=== PATIENT | male | born 1965 | race Caucasian/White ===

== ENCOUNTER 2016-07-26 23:18 | Emergency (ER) | payer OTHER ==
[~2016-07-26] VITALS: Ht 167.6 cm; Wt 67.0 kg
[~2016-07-26 23:18] MED LIST: ALBU6.7H INH; DOXY100T PO; Z.0.NO CURRENT MEDS
[2016-07-26 23:27] VITALS: BP 121/78; PULSE 55; RESP 14; TEMP 98.2; O2SAT 100
[2016-07-27] MEDS ORDERED: PROCHLORPERAZINE MALEATE 10 MG TAB PO ONE
[2016-07-27] MEDS ORDERED: diphenhydrAMINE HCL 25 MG CAP PO ONE
--- NOTE | 2016-07-27 00:41 | RADHPO ---
EXAM DATE/TIME: 07/27/2016 00:21 [place] COMPARISON: No previous studies available for comparison. INDICATIONS : Cephalgia. Nausea. RADIATION DOSE: 64.36 CTDIvol (mGy) MEDICAL HISTORY : None SURGICAL HISTORY : None. ENCOUNTER: Initial ACUITY: 2 days PAIN SCALE: 5/10 LOCATION: Bilateral cranial TECHNIQUE: Multiple contiguous axial images were obtained of the head. Using automated exposure control and adj ustment of the mA and/or kV according to patient size, radiation dose was kept as low as reasonably a chievable to obtain optimal diagnostic quality images. FINDINGS: CEREBRUM: The ventricles are normal for age. No evidence of midline shift, mass lesion, hemorrhage or acute in farction. No extra-axial fluid collections are seen. POSTERIOR FOSSA: The cerebellum and brainstem are intact. The 4th ventricle is midline. The cerebellopontine angle i s unremarkable. EXTRACRANIAL: The visualized portion of the orbits is intact. SKULL: The calvaria is intact. No evidence of skull fracture. CONCLUSION: Unremarkable noncontrast head CT Jerad Robles MD on July 27, 2016 at 0:39 Board Certified Radiologist. This report was verified electronically.
--- NOTE | 2016-07-27 00:50 | PD ---
HPI Chief Complaint: Head Injury Time Seen by Provider: 23:46 Travel History International Travel<30 days: No Contact w/Intl Traveler<30days: No Traveled to known affect area: No History of Present Illness HPI Patient is a 51-year-old male presents with his significant other for complaints of headache as well as nausea. 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 Patient states he was at work and a heavy pipe fell on his head hitting the top of his head as well as posterior aspect. He complains of pain to these 2 sites. Denies history loss conscious. States symptoms been gradually worsening. Denies any vomiting. Denies any injuries to neck chest abdomen pelvis extremities or back. Symptoms happened approximately 2 hours prior to arrival. Denies a history of blood thinner use. PFSH Past Medical History ?: Not Social History Alcohol Use: No Tobacco Use: No Substance Use: No Allergies-Medications (Allergen,Severity, Reaction): Coded Allergies: No Known Allergies (Verified , 05/18/10) Reported Meds & Prescriptions Reported Meds & Active Scripts Active Review of Systems ROS Limitations: Language Barrier Except as stated in HPI: all other systems reviewed are Neg Physical Exam Narrative GENERAL: Well-developed well-nourished, no apparent distress. SKIN: Focused skin assessment warm/dry. HEAD: Atraumatic. Normocephalic. EYES: Pupils equal and round. No scleral icterus. No injection or drainage. ENT: No nasal bleeding or discharge. Mucous membranes pink and moist. NECK: Trachea midline. No JVD. No midline cervical spine tenderness. CARDIOVASCULAR: Regular rate and rhythm. No murmur appreciated. RESPIRATORY: No accessory muscle use. Clear to auscultation. Breath sounds equal bilaterally. GASTROINTESTINAL: Abdomen soft, non-tender, nondistended. Hepatic and splenic margins not palpable. MUSCULOSKELETAL: No obvious deformities. No clubbing. No cyanosis. No edema. NEUROLOGICAL: Awake and alert. Cranial nerves II through XII are grossly intact and nonfocal, 5 out of 5 strength in all 4 extremity's, ambulates with even and narrow based gait. Data Data Last Documented VS Vital Signs Date Time Temp Pulse Resp B/P Pulse Ox O2 Delivery O2 Flow Rate FiO2 07/27/16 01:29 78 16 100 07/26/16 23:27 98.2 121/78 Orders Diphenhydramine (Benadryl) (07/27/16 00:00) Prochlorperazine Maleate (Compazine) (07/27/16 00:00) Ct Brain W/O Iv Contrast(Rout) (07/27/16 ) MDM Medical Decision Making Medical Screen Exam Complete: Yes Emergency Medical Condition: Yes Differential Diagnosis Closed head injury, headache, subdural hematoma, cervical fracture is excluded by Nexus criteria. Narrative Course Patient roomed in the emergency department, complaining of headache as well as some nausea without vomiting. CT head is or seafood and shows: Last [address] 07/27/16 0000 Signed Impressions: Service Date/Time: Wednesday, July 27, 2016 00:21 - CONCLUSION: Unremarkable noncontrast head CT Jerad Robles MD Patient was given Benadryl and Compazine by mouth and his headache was resolving. Discussed with them symptomatic management and return to ED criteria. The symptoms are very mild here and he is stable for discharge. Diagnosis Primary Impression: Headache Qualified Code: G44.309 - Post-traumatic headache, not intractable, unspecified chronicity pattern Referrals: [facility] Departure Forms: Tests/Procedures, Work Release Enter return to work date: July 28, 2016 Additional Instructions: Follow-up the primary care provider or the [facility]. Disposition: 01 DISCHARGE HOME Condition: Stable Rashaun Kong MD July 27, 2016 00:49
== END 2016-07-27 01:31 | disposition home or self-care (01) ==
LOC: PHED 23:18
DX: R51 Headache (principal); R11.0 Nausea; W22.8XXA Striking against or struck by other objects, initial encounter; Y99.0 Civilian activity done for income or pay
CPT/HCPCS: 70450; 99284; Q0164